=== PATIENT | female | born 1985 | race Caucasian/White ===

== ENCOUNTER 2019-10-19 19:43 | Emergency (ER) | payer OTHER ==
[~2019-10-19] VITALS: Ht 167.6 cm; Wt 62.2 kg
--- NOTE | 2019-10-19 20:26 | PHYS DOC ---
Past History Past Medical History: No Pertinent History Past Surgical History: Tonsillectomy Additional Past Surgical Histo: PRK-2009 Alcohol Use: Rarely General Adult EDM: Chief Complaint: LACERATION/AVULSION HPI: HPI: "..I was going after this davalos...but I got the tip of my finger...." Patient is a 34 year old female [employer] who presents with above hx and complaints of laceration 1-1/2 cm of left index finger. Patient cut it on clippers she was using to trim bushes. Distal neurovascular intact. Is up-to-date with tetanus. Normally follows at [facility]. No history immunosuppression. Patient is right-hand dominant. Injury occurred just before arrival. No recent travel outside the [place] area. Does plan to move in 3 weeks. No recent overseas assignments. Review of Systems: Review of Systems: Constitutional: Denies fever or chills Eyes: Denies change in visual acuity HENT: Denies nasal congestion or sore throat Respiratory: Denies cough or shortness of breath Cardiovascular: Denies chest pain or edema GI: Denies abdominal pain, nausea, vomiting, bloody stools or diarrhea : Denies dysuria Musculoskeletal: Denies back pain or joint pain Integument: Denies rash . Complaints of finger laceration. Neurologic: Denies headache, focal weakness or sensory changes Endocrine: Denies polyuria or polydipsia Lymphatic: Denies swollen glands Psychiatric: Denies depression or anxiety Heart Score: Risk Factors: Risk Factors: DM, Current or recent (<one month) smoker, HTN, HLP, family history of CAD, obesity. Risk Scores: Score 0 - 3: 2.5% MACE over next 6 weeks - Discharge Home Score 4 - 6: 20.3% MACE over next 6 weeks - Admit for Clinical Observation Score 7 - 10: 72.7% MACE over next 6 weeks - Early Invasive Strategies Family History: Family History: Noncontributory to presentation Current Medications: Current Meds: See nursing for home meds Allergies: Allergies: Allergies Coded Allergies Type Severity Reaction Last Updated Verified No Known Drug Allergies 10/19/19 No Physical Exam: PE: Constitutional: Well developed, well nourished, moderate acute distress, non- toxic appearance. [] HENT: Normocephalic, atraumatic, bilateral external ears normal, oropharynx moist, no oral exudates, nose normal. [] Eyes: PERRLA, EOMI, conjunctiva normal, no discharge. [] Neck: Normal range of motion, no tenderness, supple, no stridor. [] Cardiovascular:Heart rate regular rhythm, no murmur [] Lungs & Thorax: Bilateral breath sounds clear to auscultation [] Abdomen: Bowel sounds normal, soft, no tenderness, no masses, no pulsatile masses. [] Skin: Warm, dry, no erythema, no rash. [] Back: No tenderness, no CVA tenderness. [] Extremities: No tenderness, no cyanosis, no clubbing, ROM intact, no edema. [] Except findings of laceration left index finger pad Neurologic: Alert and oriented X 3, normal motor function, normal sensory function, no focal deficits noted. [] Psychologic: Affect normal, judgement normal, mood normal. [] Current Patient Data: Vital Signs: Vital Signs Date Time Temp Pulse Resp B/P (MAP) Pulse Ox O2 Delivery O2 Flow Rate FiO2 10/19/19 19:55 99.4 94 20 119/69 (86) 97 Room Air EKG: EKG: [] Radiology/Procedures: Radiology/Procedures: [] Course & Med Decision Making: Course & Med Decision Making Pertinent Labs and Imaging studies reviewed. (See chart for details) Procedure note- Laceration cleaned extensively with running tap water and surgical soap. Wound was re-cleaned with Betadine. Digital block as well as local incision injected with 2% lidocaine. Reirrigated finger. Closed finger with five 4-0 Vicryl simple sutures. Dressing applied. Patient monitor closely for infection. Patient will be started on Keflex 500 mg 3 times a day. Patient take Tylenol and ibuprofen for pain. Return if any concerns. Sutures will dissolve will not need removal. Patient apply Polysporin 4 times a day after this dressing removed. Must keep finger clean and dry. Return if any concerns. Follow-up [facility]. Impression: 1. 1 & 1/2 cm laceration of left index finger pad [] Dragon Disclaimer: Dragon Disclaimer: This electronic medical record was generated, in whole or in part, using a voice recognition dictation system. Departure Departure: Disposition: 01 HOME/RESIDENCE PRIOR TO ADM Condition: STABLE Referrals: PCP,UNKNOWN (PCP) Scripts Bacitracin/Polymyxin B Sulfate (POLYSPORIN OINTMENT) 28.3 Gm Oint...g. 28.3 GM TP QID for infection for 90 Days, MISC Prov: KAMALJIT TOLEDO MD 10/19/19 Ibuprofen (IBUPROFEN) 800 Mg Tablet 800 MG PO TID for pain or fever, #120 TAB Prov: KAMALJIT TOLEDO MD 10/19/19 Cephalexin (KEFLEX) 500 Mg Capsule 500 MG PO TID for infection for 5 Days, BOTTLE Prov: KAMALJIT TOLEDO MD 10/19/19 Justification of Admission: Justification of Admission: Justification of Admission Dx: N/A Dragon Disclaimer This chart was dictated in whole or in part using Voice Recognition software in a busy, high-work load, and often noisy Emergency Department environment. It may contain unintended and wholly unrecognized errors or omissions. Dragon Disclaimer This chart was dictated in whole or in part using Voice Recognition software in a busy, high-work load, and often noisy Emergency Department environment. It ma y contain unintended and wholly unrecognized errors or omissions. KAMALJIT TOLEDO MD Oct 19, 2019 20:26
[2019-10-19 21:00] VITALS: BP 110/70
[2019-10-19] MEDS ORDERED: CEPHALEXIN 250 MG CAPSULE PO ONE (21:15)
[2019-10-19] MEDS ORDERED: IBUP800T19 PO (21:16)
[2019-10-19] MEDS ORDERED: CEPH-264 PO (21:16)
[2019-10-19] MEDS ORDERED: BACI28.34 TP (21:16)
== END 2019-10-19 21:20 | disposition home or self-care (01) ==
LOC: ER 19:43
DX: S61.211A Laceration without foreign body of left index finger without damage to nail, initial encounter (principal); W27.8XXA Contact with other nonpowered hand tool, initial encounter; Y93.89 Activity, other specified; Y92.89 Other specified places as the place of occurrence of the external cause; Y99.8 Other external cause status
CPT/HCPCS: 12001; 99283